=== PATIENT | female | born 1940 | race Caucasian/White ===

== ENCOUNTER 2016-12-07 09:07 | Day surgery (SDC) | payer MEDICARE, OTHER ==
[~2016-12-07 09:07] MED LIST: EPINEPHRINE INJ 1 MG/10 ML DISP.SYRIN ONE; FLUMAZENIL INJ 0.5 MG/5 ML VIAL IV ONE; GLUCAGON,HUMAN RECOMB 1 MG INJ ONE; GLYCOPYRROLATE INJ 0.4 MG/2 ML VIAL ONE; NALOXONE HCL INJ/PF 0.4 MG/1 ML SDV ONE; ONDANSETRON HCL INJ/PF 4 MG/2 ML SDV ONE
[2016-12-07 09:29] LABS: HEMATOCRIT 43.6 % (36.0-47.0); HEMOGLOBIN 15.3 g/dL (12.0-15.5); HGB HCT DIFFERENCE 2.3; MEAN CORPUSCULAR HEMOGLOBIN 33.8 pg (27.0-33.4); MEAN CORPUSCULAR HGB CONC 35.2 g/dL (32.0-36.0); MEAN CORPUSCULAR VOLUME 96 fl (80-97); RED BLOOD COUNT 4.53 10^6/uL (3.72-5.28); RED CELL DISTRIBUTION WIDTH 12.9 % (11.5-14.0); WHITE BLOOD COUNT 6.4 10^3/uL (4.0-10.5)
[2016-12-07] MEDS: MIDAZOLAM 2 MG/2 ML INJ ONE ×3 (10:32→10:43)
[2016-12-07] MEDS: FENTANYL CITRATE INJ/PF 100 MCG/2 ML AMPUL ONE ×2 (10:34→10:49)
--- NOTE | 2016-12-07 11:19 | Operative Report ---
Operative Report DATE OF SURGERY: 12/07/16 PREOPERATIVE DIAGNOSIS: Blood per rectum, history of colon polyp POSTOPERATIVE DIAGNOSIS: Internal hemorrhoids OPERATION: Colonoscopy SURGEON: NANI BAKER ANESTHESIA: Moderate Sedation TISSUE REMOVED OR ALTERED: None COMPLICATIONS: None ESTIMATED BLOOD LOSS: Minimal INTRAOPERATIVE FINDINGS: Redundant colon but no polyps no masses. Prolapsing internal hemorrhoids. PROCEDURE: Informed consent was obtained. Patient was brought to the endoscopy suite. IV sedation with Versed and fentanyl was administered. Digital rectal exam revealed no palpable perianal masses other than her partially prolapsed internal hemorrhoids with no stigmata recent bleeding. She has anal skin tags as well. Endoscope was passed via the patient's anus it was fed to this cecum. The bowel prep was good. Colon was redundant making visualization somewhat difficult but adequate visualization was obtained. The cecum, right colon, transverse colon, descending colon, sigmoid colon, and the rectum were all normal with no polyps and no masses. Patient tolerated procedure well with no apparent complications. With her history of colon polyp in the past recommend repeat colonoscopy in 5 years.
--- NOTE | 2016-12-07 11:20 | PDOC DISCHARGE SUMMARY ---
Discharge Summary (SDC) - Discharge Final Diagnosis: History of colon polyp. Internal hemorrhoids. Date of Surgery: 12/07/16 Discharge Date: 12/07/16 Condition: Good Treatment or Instructions: Underwent colonoscopy. September discharge patient home when met discharge criteria. Follow-up with me in 2 weeks. Discharge Diet: As Tolerated Discharge Activity: Activity As Tolerated Report the Following to Your Physician Immediately: Increase in Pain, Unusual Bleeding
[2016-12-07 12:18] VITALS: BP 153/78
== END 2016-12-07 12:11 | disposition home or self-care (01) ==
LOC: END 09:07
PROVIDERS: ATTEND Surgery
PROC: 0DJD8ZZ Inspection of Lower Intestinal Tract, Via Natural or Artificial Opening Endoscopic (ICD-10-PCS; principal; 2016-12-07 10:30)
DX: K62.5 Hemorrhage of anus and rectum (principal); K64.8 Other hemorrhoids; Z86.010 Personal history of colon polyps; I10 Essential (primary) hypertension; M19.90 Unspecified osteoarthritis, unspecified site; M10.9 Gout, unspecified; Z87.891 Personal history of nicotine dependence; Z88.4 Allergy status to anesthetic agent; Z87.892 Personal history of anaphylaxis
CPT/HCPCS: 45378; 36415; 85027; J2250; J3010; J0171; J1610; J2310; J2405; J3490